=== PATIENT | male | born 1990 | race Caucasian/White ===

== ENCOUNTER 2018-01-07 08:16 | Emergency (ER) | payer OTHER ==
[2018-01-07 08:52] VITALS: BP 122/76; PULSE 71; RESP 16; TEMP 97.6; O2SAT 100
== END 2018-01-07 09:20 | disposition home or self-care (01) | DRG 914 ==
LOC: ED 08:16
DX: T14.8XXA Other injury of unspecified body region, initial encounter (principal); B88.8 Other specified infestations
CPT/HCPCS: 99282